=== PATIENT | male | born 1965 ===

== ENCOUNTER 2017-04-04 06:43 | Day surgery (SDC) | payer BC ==
[~2017-04-04] VITALS: Ht 190.5 cm; Wt 113.4 kg
[2017-04-04] VITALS (7 sets, daily range): BP systolic 109–140; BP diastolic 61–80
[~2017-04-04 06:43] MED LIST: LYRICA150 MG ORAL; SINGULAIR10 MG ORAL; TRAMADOL HCL50 MG ORAL; ZANAFLEX4 M1 ORAL
[2017-04-04] MEDS ORDERED: LR 1000ml 1,000 ML IVLG SCH (07:00)
[2017-04-04] MEDS ORDERED: Propofol 10mg/ml 20ml IV ONE (08:00)
[2017-04-04] MEDS ORDERED: LR 1000ml ONE (08:00)
[2017-04-04] MEDS ORDERED: Midazolam 2mg/2ml Inj ONE (08:00)
[2017-04-04] MEDS ORDERED: fentaNYL 100 mcg/2 mL IV ONE (08:00)
--- NOTE | 2017-04-04 08:06 | Pre-Procedure Note/Attestation ---
Pre-Procedure Note/Attestation Complete Prior to Procedure Planned Procedure: not applicable Procedure Narrative: colon Indications for Procedure Pre-Operative Diagnosis: screening Attestation I attest that I discussed the nature of the procedure; its benefits; risks and complications; and alternatives (and the risks and benefits of such alternatives ), prior to the procedure, with the patient (or the patient's legal lead customer service representative). I attest that, if there was a reasonable possibility of needing a blood transfusion, the patient (or the patient's legal lead customer service representative) was given the [facility] standardized written summary, pursuant to the Levi Eloise Blood Safety Act ([place] Health and Safety Code # 1645, as amended). I attest that I re-evaluated the patient just prior to the surgery and that there has been no change in the patient's H&P, except as documented below: KLAUDIA ALONSO Apr 04, 2017 08:06
--- NOTE | 2017-04-04 08:06 | Short Stay Surgery H&P ---
History of Present Illness History of Present Illness Chief Complaint see H&P HPI Lionel Whitman Ayden is a 52 year old male who was admitted on for Colon Screening Patient History Allergies: Coded Allergies: No Known Allergies (Unverified , 04/03/17) PAST MEDICAL HISTORY: Past Surgeries: Social History: Medication History Scheduled Montelukast Sodium* (Singulair*), 10 MG ORAL DAILY, (Reported) Pregabalin (Lyrica), 150 MG ORAL DAILY, (Reported) Tizanidine Hcl (Zanaflex), 4 MG ORAL DAILY, (Reported) Scheduled PRN Tramadol Hcl* (Ultram*), 50 MG ORAL BID PRN for For Pain, (Reported) Physical Exam Vital Signs Last Vital Signs Date Time Temp Pulse Resp B/P Pulse Ox O2 Delivery O2 Flow Rate FiO2 04/04/17 07:20 97.1 54 20 140/80 100 Room Air Plan Attestation Are the patient's medical conditions optimized for surgery? KLAUDIA ALONSO Apr 04, 2017 08:06
--- NOTE | 2017-04-04 08:10 | Anethesia Preoperative Eval ---
Anesthesia Pre-op PMH/ROS General Date of Evaluation: Apr 04, 2017 Time of Evaluation: 07:59 Anesthesiologist: Bc ASA Score: ASA 2 Mallampati Score Class I : Soft palate, uvula, fauces, pillars visible Class II: Soft palate, uvula, fauces visible Class III: Soft palate, base of uvula visible Class IV: Only hard plate visible Mallampati Classification: Class I Surgeon: Rafiq Diagnosis: screening colonoscopy Surgical Procedure: screening colonocopy Anesthesia History: none Social History: smoking Family History: no anesthesia problems Allergies: Coded Allergies: No Known Allergies (Unverified , 04/03/17) Medications: see eMAR Past Medical History Pulmonary: Reports: asthma Musculoskeletal/Integumentary: Reports: OA PMH Narrative: bilateral hip replacment and revisions Anesthesia Pre-op Phys. Exam Physician Exam Last Vital Signs Date Time Temp Pulse Resp B/P Pulse Ox O2 Delivery O2 Flow Rate FiO2 04/04/17 07:20 97.1 54 20 140/80 100 Room Air DUANE LEWIS M.D. Apr 04, 2017 08:10
--- NOTE | 2017-04-04 08:13 | Anethesia Preoperative Eval ---
Anesthesia Pre-op PMH/ROS General Mallampati Score Class I : Soft palate, uvula, fauces, pillars visible Class II: Soft palate, uvula, fauces visible Class III: Soft palate, base of uvula visible Class IV: Only hard plate visible Mallampati Classification: Class I Allergies: Coded Allergies: No Known Allergies (Unverified , 04/03/17) Anesthesia Pre-op Phys. Exam Physician Exam Last Vital Signs Date Time Temp Pulse Resp B/P Pulse Ox O2 Delivery O2 Flow Rate FiO2 04/04/17 07:20 97.1 54 20 140/80 100 Room Air Constitutional: NAD Cardiovascular: RRR Respiratory: CTA Airway Exam Mallampati Classification class 1, normal TM distance Mallampati Score: Class I MO: full ROM: full Teeth: intact Dentures: no lower, no upper Anesthesia Pre-op A/P Risk Assessment & Plan Assessment: ASA 2 Plan: MAC Pre-Antibiotics Drug: NONE DUANE LEWIS M.D. Apr 04, 2017 08:13
[2017-04-04] MEDS ORDERED: Meperidine 25mg/0.5ml Inj (FOR RIGORS ONLY) IV PRN (08:15)
--- NOTE | 2017-04-04 08:45 | Immediate Post-Op Evaluation ---
Immediate Post-Op Evalulation Immediate Post-Op Evalulation Procedure: Colonoscopy Polipectomy Date of Evaluation: Apr 04, 2017 Time of Evaluation: 08:44 IV Fluids: 600 Blood Products: none Estimated Blood Loss: min Urinary Output: none Blood Pressure Systolic: 114 Blood Pressure Diastolic: 70 Pulse Rate: 52 Respiratory Rate: 20 O2 Sat by Pulse Oximetry: 99 Temperature (Fahrenheit): 97.6 Pain Score (1-10): 2 Nausea: No Vomiting: No Complications none Patient Status: awake, patent, none Hydration Status: adequate DUANE LEWIS M.D. Apr 04, 2017 08:45
--- NOTE | 2017-04-04 09:38 | 48 Hour Post Anesthesia Eval ---
Post Anesthesia Evaluation Procedure: Colonoscopy Polipectomy Date of Evaluation: Apr 04, 2017 Time of Evaluation: 09:37 Blood Pressure Systolic: 122 0: 61 Pulse Rate: 74 Respiratory Rate: 18 Temperature (Fahrenheit): 97.5 O2 Sat by Pulse Oximetry: 99 Airway: patent Nausea: No Vomiting: No Pain Intensity: 1 Hydration Status: adequate Cardiopulmonary Status: stable Mental Status/LOC: patient returned to baseline Follow-up Care/Observations: n/a Post-Anesthesia Complications: none Follow-up care needed: ready to discharge DUANE LEWIS M.D. Apr 04, 2017 09:38
--- NOTE | 2017-04-04 12:00 | Operative Note - Dictated ---
DATE OF OPERATION: 04/04/2017 GASTROENTEROLOGY PROCEDURE REPORT PROCEDURE: with biopsy and snare polypectomy. SURGEON: Giana Rios M.D. ANESTHESIA: Please see the separate anesthesiologist notes for details. PRE-ENDOSCOPIC DIAGNOSIS: Screening colonoscopy. POST-ENDOSCOPIC DIAGNOSES: 1. Diminutive polyp at 20 cm, status post biopsy removal. 2. Diminutive polyp at 15 cm, status post biopsy removal. 3. A 7 mm polyp at 12 cm removed with a cold snare polypectomy. 4. Mild diffuse colonic diverticulosis. PROCEDURE: The procedure, its risks, indications, alternatives, and possible complications including, but not limited to, bleeding, infection, perforation, , and anesthesia complications were explained to the patient. An informed consent was obtained. The patient was then sedated in the left lateral decubitus position. A rectal exam was done, which was unremarkable. The colonoscope was then introduced into the rectum and advanced to the cecum without difficulty. The cecum was identified by the appearance of the ileocecal valve. The colonoscope was then gradually withdrawn and mucosa examined carefully. Examination of the colonic mucosa revealed mild colonic diverticulosis, which was seen both on the left and the right side of the colon. There were three polyps seen in the distal colon. Two were diminutive and they were located at 20 cm and 15 cm, which were removed by biopsy forceps. The third one was a moderate-sized one measuring approximately 7 mm. This one was removed with a cold snare polypectomy device without complications. The retroflexed view of rectum was unremarkable. The colonoscope was removed. The patient was sent to recovery in good condition. COMPLICATIONS: None. RECOMMENDATIONS: 1. Follow up biopsy results. 2. High-fiber diet. 3. Outpatient followup. 4. Surveillance colonoscopy in three to five years. Thank you for asking me to participate in the care of this patient. Giana Rios M.D. DR: JAKE JOB#: [id number] CC: Ana Rg M.D. ; Fax#: [phone]
== END 2017-04-04 10:10 | disposition home or self-care (01) ==
LOC: GAS 06:43
DX: Z12.11 Encounter for screening for malignant neoplasm of colon (principal); D12.6 Benign neoplasm of colon, unspecified; K57.30 Diverticulosis of large intestine without perforation or abscess without bleeding; E66.9 Obesity, unspecified; Z68.31 Body mass index [BMI] 31.0-31.9, adult; M19.90 Unspecified osteoarthritis, unspecified site; G89.29 Other chronic pain; J45.909 Unspecified asthma, uncomplicated; F17.200 Nicotine dependence, unspecified, uncomplicated; Z96.643 Presence of artificial hip joint, bilateral
CPT/HCPCS: 45380; 45385; J2250; J2704; J3010; J7120; 94003; 94150